=== PATIENT | male | born 1980 | race Caucasian/White ===

== ENCOUNTER 2017-10-31 23:19 | Emergency (ER) | payer SELFPAY ==
[2017-10-31 23:28] VITALS: RESP 16
--- NOTE | 2017-10-31 23:33 | ED PDOC ---
HPI: Psych/Substance Abuse Chief Complaint (Provider): etoh History Per: Patient, EMS Additional Complaint(s): 37-year-old male presents via ambulance acutely intoxicated. Patient got into an argument at home and police were called. Police advised the patient is brought to emergency department for acute alcohol intoxication. Patient has scratch rivera on his arms and legs. He denies any other complaints. PMD: none <MarifermekaMarisela - Last Filed: 11/01/17 05:53> <Boston Dent - Last Filed: 11/01/17 06:25> Time Seen by Provider: 10/31/17 23:32 Chief Complaint (Nursing): Alcohol Ingestion Past Medical History Reviewed: Historical Data, Nursing Documentation, Vital Signs Vital Signs: Last Vital Signs Temp 98.2 F 10/31/17 23:22 Pulse 95 H 10/31/17 23:22 Resp 16 10/31/17 23:22 BP 133/79 10/31/17 23:22 Pulse Ox 100 10/31/17 23:22 - Medical History PMH: No Chronic Diseases - Family History Family History: States: No Known Family Hx - Living Arrangements Living Arrangements: With Family - Social History Alcohol: Social <Marisela Andrew - Last Filed: 11/01/17 05:53> Vital Signs: Last Vital Signs Temp 98.2 F 10/31/17 23:22 Pulse 95 H 10/31/17 23:22 Resp 16 10/31/17 23:22 BP 133/79 10/31/17 23:22 Pulse Ox 100 11/01/17 05:55 <Boston Dent - Last Filed: 11/01/17 06:25> - Allergies Allergies/Adverse Reactions: Allergies Allergy/AdvReac Type Severity Reaction Status Date / Time No Known Allergies Allergy Verified 10/31/17 23:22 Review of Systems ROS Statement: Except As Marked, All Systems Reviewed And Found Negative Musculoskeletal: Positive for: Other (abrasions) Psych: Positive for: Other <MariferholleyMarisela queen - Last Filed: 11/01/17 05:53> Physical Exam - Reviewed Nursing Documentation Reviewed: Yes Vital Signs Reviewed: Yes - Physical Exam Appears: Positive for: Well, Non-toxic, No Acute Distress Skin: Negative for: Rash Eye Exam: Positive for: Normal appearance Cardiovascular/Chest: Positive for: Regular Rate, Rhythm Respiratory: Positive for: Normal Breath Sounds Extremity: Positive for: Normal ROM, Other (Superficial abrasions noted to upper and lower extremities, no active bleeding) Neurologic/Psych: Positive for: Alert, Oriented, Gait (unsteady), Other ( intoxicated, answers some questions appropriately) <Marisela Andrew - Last Filed: 11/01/17 05:53> - ECG O2 Sat by Pulse Oximetry: 100 Pulse Ox Interpretation: Normal <Marisela Andrew - Last Filed: 11/01/17 05:53> Medical Decision Making Medical Decision Makin37 year old intoxicated male Plan: BAL Glucose POC Patient is walking around ED, has very unsteady gait and is agitated and uncooperative. Security was called to bedside and patient was escorted back to stretcher. Haldol 5 mg IM given. 1:22 - BAL is 265 3:30 - patient is asleep, vital signs stable 5:30 - patient is asleep, vital signs stable <Marisela Andrew - Last Filed: 11/01/17 05:53> Medical Decision Making: Time: 0600 --Patient is pending clinical sobriety. Time: 06 --Upon provider reevaluation, patient is medically stable, clinically sober and requires no further treatment in the ED at this time. Patient will be discharged home. Counseling was provided and all questions were answered regarding diagnosis. There is agreement to discharge plan. Return if symptoms persist or worsen. Clinical Impression: Alcohol intoxication Scribe Attestation: Documented by Debbie Ashby, acting as a scribe for Boston Dent MD. Provider Scribe Attestation: All medical record entries made by the Scribe were at my direction and personally dictated by me. I have reviewed the chart and agree that the record accurately reflects my personal performance of the history, physical exam, medical decision making, and the department course for this patient. I have also personally directed, reviewed, and agree with the discharge instructions and disposition. <Boston Dent - Last Filed: 11/01/17 06:25> Disposition - Patient ED Disposition Is Patient to be Admitted: Transfer of Care - Disposition Disposition: Transfer of Care Disposition Time: 06:00 Patient Signed Over To: Boston Dent Handoff Comments: Signed out pending sobriety and final disposition <Marisela Andrew - Last Filed: 11/01/17 05:53> - Patient ED Disposition Is Patient to be Admitted: No Counseled Patient/Family Regarding: Diagnosis - Disposition Disposition: Routine/Home <Boston Dent - Last Filed: 11/01/17 06:25> - Clinical Impression Clinical Impression: Alcohol intoxication - Disposition Condition: STABLE Instructions: Alcohol Intoxication (ED) Forms: [employer] ([place])
[2017-11-01 06:25] VITALS: BP 119/71; PULSE 81; TEMP 97.9; O2SAT 97
== END 2017-11-01 06:54 | disposition home or self-care (01) ==
LOC: H.ER 23:19
DX: F10.129 Alcohol abuse with intoxication, unspecified (principal)
CPT/HCPCS: 82948; 96372; 99282; G0480; J1630